=== PATIENT | female | born 1970 | race Asian ===

== ENCOUNTER 2019-03-08 13:06 | Day surgery (SDC) | payer BC ==
[~2019-03-08] VITALS: Ht 167.6 cm; Wt 56.2 kg
[2019-03-08] MEDS ORDERED: IRON (17:05)
--- NOTE | 2019-03-08 17:07 | PREAC ---
Date/Time of Note Date/Time of Note DATE: 03/08/19 TIME: 17:06 Anesthesia Eval and Record Evaluation Time Pre-Procedure Interview DATE: 03/08/19 TIME: 17:06 Age 48 Sex female NPO: 8 hrs (itzel ) Preoperative diagnosis heart burn / screen for colon cancer Planned procedure EGD / colonoscopy Past Medical History Past Medical History: Includes Heme: Anemia Surgery & Anesthesia Issues No known issue Meds Anticoagulation: No Beta Afia within 24 hr: No Reason Beta Afia not given: Pt. not on B-Afia Reported Medications [Iron] No Conflict Check 03/08/19 Meds reviewed: Yes Allergies Coded Allergies: No Known Drug Allergy (Verified Allergy, Unknown, 01/27/08) Allergies Reviewed: Yes Labs/Studies Labs Reviewed: Other (NA) test: Negative Pre-procedure Exam Airway: Adequate mouth opening Mallampati: Mallampati II Teeth: Normal Lung: Normal Heart: Normal ASA Physical Status ASA physical status: 2 Emergency: None Planned Anesthetic General/MAC: MAC Pre-operative Attestations Prior to commencing anesthesia and surgery, the patient was re-evaluated, there was verification of: *The patient's identity *The results of appropriate recent lab work and preoperative vital signs *The above evaluation not changing prior to induction *Anesthetic plan, risk benefits, alternative and complications discussed with patient/family; questions answered; patient/family understands, accepts and wishes to proceed. MELANIE GARCIA Mar 08, 2019 17:07
[2019-03-08 17:12] VITALS: Ht 167.6 cm; Wt 56.2 kg
[2019-03-08 17:34] VITALS: BP 116/60; PULSE 70; RESP 18
[2019-03-08] MEDS ORDERED: PROPOFOL 40 ML ONE (17:52)
[2019-03-08] MEDS ORDERED: FENTAnyl 50 MCG/ML VIAL ONE (17:52)
[2019-03-08] MEDS ORDERED: LIDOCAINE 2% (SDV) 5 ML INJ ONE (17:52)
[2019-03-08 18:49] VITALS: BP 121/71; PULSE 65; RESP 24
--- NOTE | 2019-03-09 16:03 | PAC ---
Date/Time of Note Date/Time of Note DATE: 03/09/19 TIME: 16:03 Post-Anesthesia Notes Post-Anesthesia Note Last documented vital signs Vital Signs Date Temp Pulse Resp B/P (MAP) Pulse Ox O2 O2 Flow FiO2 Time Delivery Rate 03/08/19 65 24 121/71 100 Room Air 18:49 (88) 03/08/19 98.8 17:34 Activity: WNL Respiratory function: WNL Cardiovascular function: WNL Mental status: Baseline Pain reasonably controlled: Yes Hydration appropriate: Yes Nausea/Vomiting absent: Yes CRISTINO DUNHAM MD Mar 09, 2019 16:03
== END 2019-03-08 20:20 | disposition home or self-care (01) ==
LOC: GIL 13:06
PROVIDERS: ATTEND Internal Medicine Gastroenterology
DX: Z12.11 Encounter for screening for malignant neoplasm of colon (principal); K64.8 Other hemorrhoids; K20.9 Esophagitis, unspecified; K29.70 Gastritis, unspecified, without bleeding
CPT/HCPCS: 43239; 45378; 84703; 88305; J3010; Z7610